=== PATIENT | female | born 1975 | race Caucasian/White ===

== ENCOUNTER 2019-03-31 22:07 | Emergency (ER) | payer OTHER ==
[~2019-03-31] VITALS: Ht 157.5 cm; Wt 110.7 kg
[~2019-03-31 22:07] MED LIST: ASPI-1046 PO; ATOR-2 PO; CLON0.3T PO; CLOP75TA27 PO; COLC0.6T6 PO; COLE3.753 PO; FERR-55 PO; GABA300C PO; GLYB5TAB3 PO; HYDR-3498 PO; HYDR-3672 PO; ISOS60TA PO; LEVA0.6320 IH; LOSA100T15 PO; METF850T13 PO; METO-336 PO; NITR0.4T39 SL; NOV SC; OMEP20CA16 PO; SYMLIN SQ
[2019-03-31 22:17] VITALS: Ht 157.5 cm; Wt 110.7 kg
[2019-03-31] MEDS ORDERED: NITROGLYCERIN 2% 1 GM OINT PKT TD STA (22:37)
[2019-03-31] MEDS ORDERED: ONDANSETRON 4 MG INJ IV STA (22:37)
[2019-03-31] MEDS ORDERED: morphine 4 MG/ML VIAL IV STA (22:37)
--- NOTE | 2019-03-31 22:48 | ERD ---
ER Documentation Chief Complaint Chief Complaint back pain/chest pain. also c/o sob/vomiting. s/p cholecystectomy few weeks HPI 44-year-old female history of diabetes, recent CABG 6 months ago, recent cholecystectomy 2 weeks ago who presents with multiple complaints. Patient describes bilateral flank pain for at least 3 months with a description of chronic renal insufficiency and possible kidney stones. The patient also describes chest pain over the last 3 days that is left-sided, pressure-like and radiating to her left arm that is consistent with anginal equivalent. Patient denies any fevers or chills, no pleuritic pain. Patient does have some nausea and nonbloody nonbilious emesis. Patient is asking for morphine 6 mg. ROS All systems reviewed and are negative except as per history of present illness. Medications Home Meds Active Scripts Nitroglycerin* (Nitrostat*) 25 Tab Subl, 1 TAB SL Q5M PRN for CHEST PAIN, #12 Prov:DAVIDSAM 01/04/15 Reported Medications Colesevelam Hcl (Welchol) 3.75 Gm Powd.pack, 3.75 GM PO DAILY 01/03/15 Pramlintide Acetate (Symlinpen 120) 2.7 Ml Pen.injctr, 15 MCG SQ TID, EA 01/03/15 Omeprazole* (Omeprazole*) 20 Mg Capsule.dr, 20 MG PO QAM AC BREAKFAST, CAP 01/03/15 Nitroglycerin* (Nitrostat*) 0.4 Mg Tab.subl, 0.4 MG SL Q5MIN PRN for CHEST PAIN, BOTTLE 01/03/15 Metoprolol Succinate* (Toprol XL*) 100 Mg Tab.sr.24h, 100 MG PO DAILY, TAB 01/03/15 Metformin Hcl* (Metformin Hcl*) 850 Mg Tablet, 850 MG PO DAILY, TAB 01/03/15 Losartan Potassium* (Losartan Potassium*) 100 Mg Tablet, 100 MG PO DAILY, TAB 01/03/15 Levalbuterol (Xopenex) 0.63 Mg/3 Ml Nebu, 1 VIAL IH Q4H 01/03/15 Hydrocodone Bit-Acetaminophen* (Organ*) 5-325 Mg Tab, 1 TAB PO Q6 PRN for PAIN, TAB 01/03/15 Hydralazine Hcl* (Hydralazine Hcl*) 50 Mg Tab, 50 MG PO TID, TAB 2/7/15 Glyburide* (Glyburide*) 5 Mg Tablet, 5 MG PO DAILY, TAB 01/03/15 Gabapentin* (Neurontin*) 300 Mg Capsule, 300 MG PO TID, CAP 01/03/15 Colchicine* (Colcrys*) 0.6 Mg Tablet, 0.6 MG PO TID, TAB 01/03/15 Clonidine Hcl* (Clonidine Hcl*) 0.3 Mg Tablet, 0.3 MG PO Q8, TAB 01/03/15 Atorvastatin* (Atorvastatin*) 80 Mg Tablet, 80 MG PO HS, TAB 01/03/15 Ferrous Sulfate* (Ferrous Sulfate*) 325 Mg Tablet, 325 MG PO BID, TAB 01/03/15 Clopidogrel Bisulfate (Clopidogrel) 75 Mg Tablet, 75 MG PO DAILY, TAB 01/03/15 Aspirin* (Aspirin* (EC)) 81 Mg Tablet.dr, 81 MG PO DAILY, TAB 01/03/15 Isosorbide Mononitrate* (Isosorbide Mononitrate*) 60 Mg Tab.er.24h, 60 MG PO BID, TAB 01/03/15 Insulin Aspart* (Novolog Insulin Vial*) 100 U/Ml Vial, 0 SC SLIDING SCALE AC, VIAL 01/03/15 Allergies Allergies: Uncoded Allergies: PENICILLIN (Allergy, Unknown, 01/03/15) PMhx/Soc History of Surgery: Yes (c section x2 ,leg surg,2x stent,x5 angiogram, CABG, hysterectomy) Anesthesia Reaction: No Hx Neurological Disorder: No Hx Respiratory Disorders: Yes (asthma) Hx Cardiac Disorders: Yes (HTN, high cholesterol) Hx Psychiatric Problems: No Hx Miscellaneous Medical Probl: Yes (ANEMIA, DM, hepatitis B) Hx Alcohol Use: No Hx Substance Use: No Hx Tobacco Use: No Smoking Status: Never smoker FmHx Family History: diabetes, coronary disease Physical Exam Vitals Vital Signs Date Temp Pulse Resp B/P (MAP) Pulse Ox O2 O2 Flow FiO2 Time Delivery Rate 04/01/19 62 19 173/90 100 Room Air 01:49 (117) 03/31/19 99.2 70 20 207/88 99 22:17 (127) Physical Exam General: Uncomfortable Head: Normocephalic, atraumatic. Eyes: Pupils equally reactive, EOM intact ENT: Moist mucous membranes Neck: Supple, no lymphadenopathy Respiratory: Lungs clear bilaterally, no distress Cardiovascular: RRR, no murmurs, rubs, or gallops Abdominal: Soft, mild generalized tenderness without rebound or guarding, inconsistent exam, negative Moore sign, no tenderness to McBurney's point : Deferred MSK: No edema, no unilateral swelling, 5/5 strength Neurologic: Alert and oriented, moving all extremities, normal speech, no focal weakness, no cerebellar signs Skin: No rash Psych: Normal mood Result Diagram: 03/31/19223903/31/192239 Results 24 hrs Laboratory Tests Test 03/31/19 22:40 White Blood Count 10.2 10^3/ul Red Blood Count 3.94 10^6/ul Hemoglobin 11.5 g/dl Hematocrit 35.8 % Mean Corpuscular Volume 90.9 fl Mean Corpuscular Hemoglobin 29.2 pg Mean Corpuscular Hemoglobin Concent 32.1 g/dl Red Cell Distribution Width 13.2 % Platelet Count 497 10^3/UL Mean Platelet Volume 12.6 fl Immature Granulocytes % 0.200 % Neutrophils % 51.1 % Lymphocytes % 25.0 % Monocytes % 10.7 % Eosinophils % 11.3 % Basophils % 1.7 % Nucleated Red Blood Cells % 0.0 /100WBC Immature Granulocytes # 0.020 10^3/ul Neutrophils # 5.2 10^3/ul Lymphocytes # 2.5 10^3/ul Monocytes # 1.1 10^3/ul Eosinophils # 1.2 10^3/ul Basophils # 0.2 10^3/ul Nucleated Red Blood Cells # 0.0 10^3/ul Sodium Level 141 mmol/L Potassium Level 3.9 mmol/L Chloride Level 104 mmol/L Carbon Dioxide Level 23 mmol/L Anion Gap 14 Blood Urea Nitrogen 41 mg/dl Creatinine 2.07 mg/dl Est Glomerular Filtrat Rate mL/min 26 mL/min Glucose Level 185 mg/dl Calcium Level 9.5 mg/dl Total Bilirubin 0.0 mg/dl Direct Bilirubin 0.00 mg/dl Indirect Bilirubin 0.0 mg/dl Aspartate Amino Transf (AST/SGOT) 21 IU/L Alanine Aminotransferase (ALT/SGPT) 17 IU/L Alkaline Phosphatase 66 IU/L Troponin I 0.017 ng/ml Total Protein 8.4 g/dl Albumin 4.8 g/dl Globulin 3.60 g/dl Albumin/Globulin Ratio 1.33 Lipase 370 U/L Current Medications Medications Dose Sig/Gila Start Time Status Last (Trade) Ordered Route PRN Stop Time Admin Dose Reason Admin 1 inch ONCE STAT 03/31/19 DC 03/31/19 Nitroglycerin TD 22:37 03/31/19 22:56 22:40 (Nitroglyceri n 2% Oint) Morphine 6 mg ONCE STAT 03/31/19 DC 03/31/19 Sulfate IV 22:37 03/31/19 22:51 (morphine) 22:40 Ondansetron 4 mg ONCE STAT 03/31/19 DC 03/31/19 HCl (Zofran IV 22:37 03/31/19 22:51 Inj) 22:40 25 mg ONCE ONCE 04/01/19 DC 04/01/19 Diphenhydrami IV 01:30 04/01/19 01:22 ne HCl 01:31 (Benadryl) Ondansetron 4 mg ER BRIDGE 04/01/19 HCl (Zofran PRN IV 03:00 04/02/19 Inj) NAUSEA/VOMITI 02:59 NG 650 mg ER BRIDGE 04/01/19 Acetaminophen PRN PO 03:00 04/02/19 (Tylenol .MILD PAIN 02:59 Tab) 1-3 OR TEMP Procedures/MDM EKG, MONITORS, & DIAGNOSTIC IMAGING: EKG: I reviewed and interpreted a 12-lead EKG. Rhythm: Normal sinus rhythm ST Changes: No contiguous ST segment elevations T waves: T wave inversions in the lateral leads Impression: Abnormal EKG Repeat EKG: EKG: I reviewed and interpreted a 12-lead EKG. Rhythm: Normal sinus rhythm ST Changes: No contiguous ST segment elevations T waves: No contiguous T wave inversions, improved from prior Impression: Abnormal EKG Chest x-ray: I reviewed and interpreted a 1 view of the chest Mediastinum: No enlargement Cardiac silhouette: No cardiomegaly Airspace: Clear lung recinos bilaterally without evidence of pneumothorax Bones: No evidence of fracture CT abdomen and pelvis: IMPRESSION: 1. There are multiple surgical skin zully still in place in the anterior abdominal wall and about the umbilicus. 2. Prior hysterectomy. The ovaries are not identified. Oval cystic structure in the right pelvis measuring 2.9 cm is again seen, however, and may represent a paraovarian cyst or other cystic lesion. This was seen on the most recent prior. 3. Normal appendix. 4. Moderate stool burden. No evidence for small bowel obstruction, free air, or abscess. PROCEDURES: [None] LAB INTERPRETATION: * Negative troponin MEDICAL DECISION MAKING: The patient's history, physical exam and clinical presentation is concerning for possible cardiogenic etiology and acute coronary syndrome given the patient's history. However the patient has had 3 days of symptoms. Her EKG is abnormal but not consistent with ST elevation myocardial infarction. Patient additionally has flank pain. Consider possible renal colic. Patient has a benign abdominal exam but recent surgery. CT imaging will be appropriate to rule out complications. No evidence of vascular process given subacute nature. Based on the patient's clinical exam and history and risk factors, I have a much lower clinical concern for pulmonary embolism, acute aortic dissection, pneumothorax, pneumonia, cardiac tamponade HEART Score: Greater than 4 MACE Rate: upwards of 16.6% Shared Decision Making: We had a conversation regarding risk stratification, MACE rate, and the risks, benefits, alternatives of disposition planning opt ions. Disposition planning: Admit ER COURSE: * Aspirin given. Pain control given. Patient without chest pain currently. Resting and sleeping. * Negative troponin. CONSULTATION: [None] DISPOSITION PLAN: Telemetry admission for management of chest pain to rule out acute coronary syndrome, serial enzymes, risk stratification and consideration of provocative testing CONSULTATION: Accepting care team and consultations: I discussed the current laboratory data, diagnostic imaging and emergency care provided. Admitting team: Dr. Bee Admitting team indication: Insurance directed, patient is unstable for transportation given chest pain and dynamic EKG. Departure Diagnosis: Primary Impression: Chest pain Chest pain type: unspecified Qualified Codes: R07.9 - Chest pain, unspecified Additional Impressions: Abdominal pain Abdominal location: unspecified location Qualified Codes: R10.9 - Unspecified abdominal pain Renal insufficiency Pain, flank, bilateral Condition: Stable JAMIE MONGE MD March 31, 2019 22:48
[2019-04-01] MEDS ORDERED: DIPHENHYDRAMINE 50 MG INJ IV ONE (01:30)
[2019-04-01] MEDS ORDERED: ACETAMINOPHEN 325 MG TAB PO PRN (03:00)
[2019-04-01] MEDS ORDERED: ONDANSETRON 4 MG INJ IV PRN (03:00)
[2019-04-01 07:00] VITALS: BP 184/92; PULSE 59; RESP 16
[2019-04-01] MEDS ORDERED: PANT40TA3 PO (07:24)
[2019-04-01] MEDS ORDERED: HYDR100T25 PO (07:24)
[2019-04-01] MEDS ORDERED: RSV10T PO (07:25)
[2019-04-01] MEDS ORDERED: LINA5TAB PO (07:25)
[2019-04-01] MEDS ORDERED: GLIM4TAB PO (07:25)
[2019-04-01] MEDS ORDERED: COLC0.6T6 PO (07:26)
[2019-04-01] MEDS ORDERED: HYDR-4012 PO (07:26)
[2019-04-01] MEDS ORDERED: ESCI10TA PO (07:26)
[2019-04-01] MEDS ORDERED: LOSA1TAB28 PO (07:27)
[2019-04-01] MEDS ORDERED: FENO145T37 PO (07:27)
[2019-04-01] MEDS ORDERED: BISA5TAB6 PO (07:28)
[2019-04-01] MEDS ORDERED: GABA300C16 PO (07:28)
[2019-04-01] MEDS ORDERED: LORA1TAB PO (07:28)
[2019-04-01] MEDS ORDERED: INSU100I33 SC (07:29)
[2019-04-01] MEDS ORDERED: INSU200I SQ (07:30)
[2019-04-01] MEDS ORDERED: HYDROmorphONE 2 MG/ML SYG IV PRN (07:30)
[2019-04-01] MEDS ORDERED: ALBU18HF INHALATION (07:31)
[2019-04-01] MEDS ORDERED: DULA1.5P SQ (07:31)
[2019-04-01] MEDS ORDERED: NIFE30TA23 PO (07:32)
[2019-04-01] MEDS ORDERED: FURO-109 PO (07:32)
[2019-04-01] MEDS ORDERED: CLOP75TA27 PO (07:32)
[2019-04-01] MEDS ORDERED: DOCU100T PO (07:33)
[2019-04-01] MEDS ORDERED: NEBI10TA2 PO (07:33)
[2019-04-01] MEDS ORDERED: MONT10TA24 PO (07:33)
[2019-04-01] MEDS ORDERED: FER325 PO (07:34)
[2019-04-01] MEDS ORDERED: SPIR25TA PO (07:34)
[2019-04-01] MEDS ORDERED: ROSU40TA35 PO (07:38)
[2019-04-01] MEDS ORDERED: ESCI20TA PO (07:38)
[2019-04-01] MEDS ORDERED: CYCL10TA7 PO (08:59)
--- NOTE | 2019-04-01 09:00 | PDOCDIS ---
Discharge Instructions CONDITION [id number] Patient Condition: [id number] Good HOME CARE INSTRUCTIONS: [id number] Diet Instructions: [id number] Activity Restrictions: [id number] No Restrictions FOLLOW UP/APPOINTMENTS Follow-up Plan pcp 1 week JOHNNY PUENTE MD April 01, 2019 09:00
--- NOTE | 2019-04-01 10:59 | HP ---
DATE OF ADMISSION: 03/31/2019 CHIEF COMPLAINT: Chest pain and lower back pain. HISTORY OF PRESENT ILLNESS: A 44-year-old female with coronary artery disease, hypertension, type 2 diabetes mellitus, and hyperlipidemia, status post coronary artery bypass graft about 6 months prior to admission, presented to emergency room with complaint of chest pain and bilateral flank pain for t he last 3 months prior to visit. The patient underwent cholecystectomy a few weeks prior to admissio n. She denies shortness of breath. No nausea, vomiting, or diaphoresis. No exertional symptoms. T he patient underwent stress test about 2 weeks prior to admission. There was no evidence of coronary ischemia. She is concerned about kidney stones. A CAT scan of the abdomen and pelvis did not show any evidence of kidney stones or hydronephrosis. PAST MEDICAL HISTORY: 1. Coronary artery disease. 2. Hypertension. 3. Type 2 diabetes mellitus. 4. Hyperlipidemia. 5. Stage III chronic kidney disease. PAST SURGICAL HISTORY: Status post coronary artery bypass graft about 6 months prior to admission an d is status post cholecystectomy several weeks prior to admission. Status post hysterectomy, status post x2. MEDICATIONS PRIOR TO ADMISSION: 1. WelChol. 2. Pramlintide acetate. 3. Omeprazole. 4. Nitroglycerin. 5. Metoprolol. 6. Metformin. 7. Losartan. 8. Levalbuterol. 9. [place]. 10. Hydralazine. 11. Glimepiride 12. Gabapentin. 13. Colchicine. 14. Clonidine. 15. Atorvastatin. 16. Ferrous sulfate. 17. Plavix. 18. Aspirin. 19. Isosorbide mononitrate. 20. Insulin per sliding scale. ALLERGIES: PENICILLIN. SOCIAL HISTORY: The patient denies tobacco or alcohol use. PHYSICAL EXAMINATION: GENERAL: Well-developed, well-nourished, moderately obese female who is in no apparent distress. VITAL SIGNS: Stable. She is afebrile. HEENT: Extraocular muscles are intact. Pupils are equal, round and reactive to light bilaterally. Sclerae are anicteric. Oropharynx is clear and moist. NECK: Supple, no JVD, no carotid bruits. LUNGS: Clear to auscultation bilaterally. CARDIAC: Regular rate and rhythm. No murmurs, rubs or gallops. CHEST: Wounds are clean. ABDOMEN: Soft, nontender, nondistended, normoactive bowel sounds. EXTREMITIES: No clubbing, cyanosis, or edema. FLANK: Bilateral flank tenderness to palpation. NEUROLOGICAL: Nonfocal. LABORATORY DATA: WBC 10.2, hemoglobin 11.5, platelet count 497,000. BUN is 41, creatinine 2.07. Tr oponin is 0.017 x2. ASSESSMENT: 1. A 44-year-old female with atypical chest pain. The patient had a normal stress test about 2 week s prior to admission. 2. Coronary artery disease, status post coronary artery bypass graft 6 months prior to admission. 3. Bilateral flank pain appears to be musculoskeletal in nature. 4. Hypertension. 5. Type 2 diabetes mellitus. 6. Hyperlipidemia. 7. Stage III chronic kidney disease. 8. Narcotic dependence. 9. Drug seeking behavior. PLAN: 1. Place in tele observation. 2. Resume home medications. 3. There is no indication for repeat stress test. 4. Flexeril p.r.n. 5. Discharge planning. Dictated By: JOHNNY WALDRON/VIRAL Conf#: [id number] DID#: [id number] CC: JAMIE MONGE MD;*EndCC*
--- NOTE | 2019-04-01 11:29 | RADRPT ---
Echocardiogram Report Patient Name: Shea MARQUEZtient ID: [id number] : 1975 (44y 2m)Study Date: 04/01/2019 7:53:48 AM Gender: FAccession #: [id number] Tech: Ora Maldonado RDCS Location: [facility] Ref.Physician: LOGAN YEN Height(Cm): BSA: Weight(Kg): Quality: Technically Difficult StudyAccount #: Procedures: Echocardiographic Report: Transthoracic echocardiogram with complete 2D, M-Mode, and doppler examination. Indications: s/p CABG. Measurements: 2D/M Mode Doppler Measurement Value Normal Range Measurement Value Normal Range LVIDd 2D 4.9 [ 3.8 - 5.2 ] cm AV Peak Le[place] 1.5 [ 100.0 - 170.0 ] cm/sec LVIDs 2D 2.5 [ 2.2 - 3.5 ] cm AV Peak PG 9.0 [ 2.0 - 9.0 ] mmHg LVPWd 2D 1.2 [ 0.6 - 0.9 ] cm AI Peak PG 30.0 mmHg IVSd 2D 1.2 [ 0.6 - 0.9 ] cm AI Peak Le[place] 2.7 cm/sec AoR Diam 2D 2.9 [ 2.3 - 3.1 ] cm AI PHT 637.0 msec EDV 2D 115.0 [ 46.0 - 106.0 ] ml LVOT Peak [place] 1.0 [ 70.0 - 110.0 ] cm/sec ESV 2D 22.8 [ 14.0 - 42.0 ] ml LVOT Peak PG 4.0 [ 2.0 - 6.0 ] mmHg EF 2D 80.2 [ 54.0 - 74.0 ] percent MV E Peak [place] 1.1 [ 60.0 - 130.0 ] cm/sec LA Dimen 2D 4.1 [ 2.7 - 3.8 ] cm MV A Peak [place] 0.6 [ 100.0 - 120.0 ] cm/sec MV E/A 1.8 [ 0.8 - 1.5 ] ratio MV Decel Time 197 [ 104 - 258 ] msec Lat E` León 0.1 [ 10.0 - 15.0 ] cm/sec Lateral E/E` 21.8 [ 1.0 - 2.0 ] ratio MV E/A 1.8 [ 0.8 - 1.5 ] ratio TR Peak Le[place] 2.5 [ 100.0 - 280.0 ] cm/sec TR Peak PG 25.0 mmHg RVSP 28.0 [ 10.0 - 36.0 ] mmHg RA Pressure 3.0 mmHg Findings: Left Ventricle: Normal left ventricular systolic function. Normal left ventricular cavity size. Mild concentric left ventricular hypertrophy. Ejection fraction is visually estimated at 60 %. Tissue Doppler/Mitral Doppler indices are consistent with pseudonormalization with mildly elevated left atrial pressure (Stage II diastolic dysfunction). Right Ventricle: Normal right ventricular size. Normal right ventricular systolic function. Left Atrium: There is mild enlargement of left atrium. Right Atrium: The right atrium is normal in size. Mitral Valve: Normal appearance and function of the mitral valve with trace physiologic regurgitation. Aortic Valve: No hemodynamically significant aortic stenosis by doppler. Aortic cusps appear mildly calcified. Tricuspid Valve: Normal appearance and function of the tricuspid valve with trace physiologic regurgitation. Estimated peak PA systolic pressure 28 mmHg. Pulmonic Valve: Normal pulmonic valve appearance. Pericardium: Normal pericardium with no significant pericardial effusion. Aorta: Normal aortic root. IVC: Normal size and normal respiratory collapse consistent with normal right atrial pressure. Conclusions: Normal left ventricular systolic function. Normal left ventricular cavity size. Mild concentric left ventricular hypertrophy. Ejection fraction is visually estimated at 60 %. Tissue Doppler/Mitral Doppler indices are consistent with pseudonormalization with mildly elevated left atrial pressure (Stage II diastolic dysfunction). Normal right ventricular size. Normal right ventricular systolic function. There is mild enlargement of left atrium. The right atrium is normal in size. No significant valvular stenosis or regurgitation seen. Normal pericardium with no significant pericardial effusion. Electronically Signed By: Logan Yen 2019-04-01 11:27:54 PDT
--- NOTE | 2019-04-01 19:05 | DS ---
DATE OF ADMISSION: 03/31/2019 DATE OF DISCHARGE: 04/01/2019 DISCHARGE DIAGNOSES: 1. Atypical chest pain. 2. Coronary artery disease status post CABG about 6 months prior to admission. 3. Status post cholecystectomy about 6 weeks prior to admission. 4. Bilateral flank pain. 5. Hypertension. 6. Type 2 diabetes mellitus. 7. Narcotic dependence. 8. Drug seeking behavior. HOSPITAL COURSE: A 44-year-old female with multiple medical problems, status post coronary artery by pass graft about 6 months prior to admission, presented to emergency room with complaint of chest shila n and bilateral flank pain. Initial evaluation was unremarkable. CAT scan of the abdomen and pelvis showed multiple surgical skin zully in the anterior abdominal wall. There was no evidence of kidn ey stone or hydronephrosis. The patient has stage III chronic kidney disease. She had stress test 2 weeks prior to admission with no evidence of ischemia. The patient was evaluated while she was in [facility] emergency room. I prescribed Flexeril for her bilateral low back pain. I encouraged her to avoid narcotics. The patient will follow up with PCP as outpatient. Dictated By: JOHNNY WALDRON/VIRAL Conf#: [id number] DID#: [id number] CC: JAMIE MONGE MD;*EndCC*
== END 2019-04-01 10:00 | disposition home or self-care (01) ==
LOC: E/R 22:07 → CANBEDREQ 04-01 19:49
DX: N28.9 Disorder of kidney and ureter, unspecified (principal); R10.84 Generalized abdominal pain; I10 Essential (primary) hypertension; E11.9 Type 2 diabetes mellitus without complications; J45.909 Unspecified asthma, uncomplicated; Z95.1 Presence of aortocoronary bypass graft; Z79.4 Long term (current) use of insulin; Z79.82 Long term (current) use of aspirin
CPT/HCPCS: 36415; 71045; 74176; 80053; 82550; 82553; 83690; 84484; 85025; 93005; 93306; 96374; 96375; J1170; J1200; J2270; J2405; Z7502; Z7610